=== PATIENT | female | born 1975 | race Caucasian/White ===

== ENCOUNTER 2016-07-25 19:37 | Emergency (ER) | payer OTHER ==
--- NOTE | 2016-07-25 21:08 | ED NURSING NOTES ---
Clinical Report - Nurses [facility] [place] [address] 07/25/2016 19:41 Patient: MARANDA WONG TRIAGE Triage time 19:53 Jul 25 2016. Acuity: LEVEL 4. Chief Complaint: (back pain, possible ). Alert. No acute distress. JERRY COMA SCORE: [place] Coma Scale: 15- eyes open spontaneously (4); best verbal response- oriented x 4 (5); best motor response- obeys commands (6). --20:03 Odalis Tapia R.N. 19:53 07/25/16. BP: 126/69. HR: 100. RR: 18. O2 saturation: 100%. Temp: 98.2 F. Pain level now 0/10. --20:03 Odalis Tapia R.N. Weight: 78.4 kg stated. Height/Length: 63 inches Per Patient. BMI: 30.6. --19:52 Odalis Tapia R.N. Medications Abilify Oral 2.5 mg. --20:00 Odalis Tapia R.N. Lexapro Oral 10 mg. --20:01 Odalis Tapia R.N. ClonazePAM Oral 1 mg. --20:01 Odalis Tapia R.N. Medication/allergy information source: the patient. --20:03 Odalis Tapia R.N. Allergies Haldol. ("eyes rolled back in my head") --20:01 Odalis Tapia R.N. History Arrived by private vehicle. Historian: patient. Primary physician (Grabiel MCCLURE). ( Pt states she had unprotected sex recently and concerned she may have a STD or may be . "I took a few home tests and they were positive and negative".). Onset. (3 weeks). Treatment SERVICE CONSULTANT: None. PAST MEDICAL HX: Immunizations: up-to-date and seasonal influenza. Last normal menstrual period- Jun 30. Sexual history - sexually active and history of exposure to sexually transmitted disease. No contraception. SOCIAL HX: Smoker- current status unknown. No alcohol use or drug use. No infectious disease exposure. FALL RISK ASSESSMENT: Fall risk assessment completed. No fall risk identified. NUTRITIONAL RISK ASSESSMENT: The nutritional risk assessment revealed no deficiencies. FUNCTIONAL ASSESSMENT: Functional assessment: no impairments noted. LEARNING NEEDS ASSESSMENT: The learning needs assessment revealed no barriers. SKIN INTEGRITY ASSESSMENT: Skin integrity risk assessment completed. No skin integrity risk identified. --20:03 Odalis Tapia R.N. PROBLEMS: Depression. Anxiety Reaction. Bipolar Disorder. --20:02 Odalis Tapia R.N. ADDITIONAL SURGERIES: Knee Surgery. --20:02 Odalis Tapia R.N. Cholecystectomy. --20:03 Odalis Tapia R.N. Interventions ID band on patient. To room. --20:03 Odalis Tapia R.N. PHYSICAL ASSESSMENT Ambulatory to room. GENERAL / NEURO / PSYCH: Oriented X 4. Appears in no acute distress. SKIN: Skin is warm and dry. --20:03 Odalis Tapia R.N. NURSING PROGRESS NOTES Clean catch urine collected with return of yellow-colored clear urine; sample sent to lab for urinalysis. Specimen labeled in the presence of the patient. --20: Odalis Tapia R.N. PELVIC EXAM: Pelvic exam performed by PA. Assisted by one nurse. Preparation: pelvic tray; patient placed in lithotomy position. Procedure: speculum and bimanual exam. Moderate amount of vaginal discharge noted. Specimens collected and sent to lab: GC, chlamydia and wet prep. Status post-procedure: she was stable. Total time of assist / procedure: 15 minutes. --20:21 Rona Logan 21:07 07/25/2016 Macrobid PO Capsules 100 mg given. Allergies verified and confirmed 5 rights. --21:07 Rona Logan. DISPOSITION / DISCHARGE :07/25/16. No learning barriers present. Discharge instructions provided and reviewed with the patient. Reviewed medication(s) side effects, precautions, dosing and course information. Prescription(s) given to the patient. Patient verbalized understanding. Written instructions provided in Lao. ( Follow up with PCP in 3 days. Increase fluid intake. If any tests come back abnormal we will call you.). The patient was discharged by the physician assistant bookkeeper. She was discharged home and unaccompanied at time of discharge. She left the Emergency Department ambulatory and via private vehicle. Patient driving. --21:20 Rona Logan 21:16 07/25/16. BP: deferred. HR: deferred. RR: deferred. O2 saturation: deferred. Temp: deferred. Pain level now deferred. --21:20 Rona Logan. Locked/Released at 07/26/2016 5:44 by Rona Logan,
--- NOTE | 2016-07-25 21:08 | ED NURSING NOTES ---
Clinical Report - Nurses [facility] [place] [place] [address] 07/25/2016 19:41 Patient: MARANDA WONG TRIAGE Triage time 19:53 Jul 25 2016. Acuity: LEVEL 4. Chief Complaint: (back pain, possible ). Alert. No acute distress. JERRY COMA SCORE: [place] Coma Scale: 15- eyes open spontaneously (4); best verbal response- oriented x 4 (5); best motor response- obeys commands (6). --20:03 Odalis Tapia R.N. 19:53 07/25/16. BP: 126/69. HR: 100. RR: 18. O2 saturation: 100%. Temp: 98.2 F. Pain level now 0/10. --20:03 Odalis Tapia R.N. Weight: 78.4 kg stated. Height/Length: 63 inches Per Patient. BMI: 30.6. --19:52 Odalis Tapia R.N. Medications Abilify Oral 2.5 mg. --20:00 Odalis Tapia R.N. Lexapro Oral 10 mg. --20:01 Odalis Tapia R.N. ClonazePAM Oral 1 mg. --20:01 Odalis Tapia R.N. Medication/allergy information source: the patient. --20:03 Odalis Tapia R.N. Allergies Haldol. ("eyes rolled back in my head") --20:01 Odalis Tapia R.N. History Arrived by private vehicle. Historian: patient. Primary physician (Grabiel MCCLURE). ( Pt states she had unprotected sex recently and concerned she may have a STD or may be . "I took a few home tests and they were positive and negative".). Onset. (3 weeks). Treatment SUPERVISOR WATERWORKS: None. PAST MEDICAL HX: Immunizations: up-to-date and seasonal influenza. Last normal menstrual period- Jun 30. Sexual history - sexually active and history of exposure to sexually transmitted disease. No contraception. SOCIAL HX: Smoker- current status unknown. No alcohol use or drug use. No infectious disease exposure. FALL RISK ASSESSMENT: Fall risk assessment completed. No fall risk identified. NUTRITIONAL RISK ASSESSMENT: The nutritional risk assessment revealed no deficiencies. FUNCTIONAL ASSESSMENT: Functional assessment: no impairments noted. LEARNING NEEDS ASSESSMENT: The learning needs assessment revealed no barriers. SKIN INTEGRITY ASSESSMENT: Skin integrity risk assessment completed. No skin integrity risk identified. --20:03 Odalis Tapia R.N. PROBLEMS: Depression. Anxiety Reaction. Bipolar Disorder. --20:02 Odalis Tapia R.N. ADDITIONAL SURGERIES: Knee Surgery. --20:02 Odalis Tapia R.N. Cholecystectomy. --20:03 Odalis Tapia R.N. Interventions ID band on patient. To room. --20:03 Odalis Tapia R.N. PHYSICAL ASSESSMENT Ambulatory to room. GENERAL / NEURO / PSYCH: Oriented X 4. Appears in no acute distress. SKIN: Skin is warm and dry. --20:03 Odalis Tapia R.N. NURSING PROGRESS NOTES Clean catch urine collected with return of yellow-colored clear urine; sample sent to lab for urinalysis. Specimen labeled in the presence of the patient. --20: Odalis Tapia R.N. PELVIC EXAM: Pelvic exam performed by PA. Assisted by one nurse. Preparation: pelvic tray; patient placed in lithotomy position. Procedure: speculum and bimanual exam. Moderate amount of vaginal discharge noted. Specimens collected and sent to lab: GC, chlamydia and wet prep. Status post-procedure: she was stable. Total time of assist / procedure: 15 minutes. --20:21 Rona Logan 21:07 07/25/2016 Macrobid PO Capsules 100 mg given. Allergies verified and confirmed 5 rights. --21:07 Rona Logan. DISPOSITION / DISCHARGE :07/25/16. No learning barriers present. Discharge instructions provided and reviewed with the patient. Reviewed medication(s) side effects, precautions, dosing and course information. Prescription(s) given to the patient. Patient verbalized understanding. Written instructions provided in [place]. ( Follow up with PCP in 3 days. Increase fluid intake. If any tests come back abnormal we will call you.). The patient was discharged by the physician physician office assistant. She was discharged home and unaccompanied at time of discharge. She left the Emergency Department ambulatory and via private vehicle. Patient driving. --21:20 Rona Logan 21:16 07/25/16. BP: deferred. HR: deferred. RR: deferred. O2 saturation: deferred. Temp: deferred. Pain level now deferred. --21:20 Rona Logan. Locked/Released at 07/26/2016 5:44 by Rona Logan,
--- NOTE | 2016-07-25 21:08 | ED CLINICAL REPORT ---
Clinical Report - Physicians/Mid Levels [facility] [address] [place] [address] 07/25/2016 19:41 Patient: MARANDA WONG Time Seen: 20:00 Jul 25 2016. Arrived- By private vehicle. Historian- patient. HISTORY OF PRESENT ILLNESS Chief Complaint: PELVIC PAIN and DYSURIA. 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 The patient has had pelvic pain. No vaginal pain or low back pain. Last normal menstrual period- jun 30. Sexually active- unprotected sex and heterosexual. (Patient reports unprotected intercourse 3 weeks previously, concern for STD, has had cramping, arthralgias, myalgias, no fevers. Occasional back pain, and addition has had frequency. Pertinent denied of any symptoms. Patient has taken at home tests, which were negative and positive. Patient reports seeing her primary care provider today for other issues however did not mention any of this to her.). REVIEW OF SYSTEMS No vomiting, diarrhea, headache or fever. All systems otherwise negative, except as recorded above. SOCIAL HISTORY No alcohol use or drug use. ADDITIONAL NOTES The nursing notes have been reviewed. PHYSICAL EXAM Vital Signs: 07/25/2016 19:53 BP: 126/69. HR: 100. RR: 18. O2 saturation: 100%. Temp: 98.2 F. Appearance: Alert. HEENT: Normal external inspection. ENT: Pharynx normal. CVS: Heart sounds normal. Respiratory: No respiratory distress. Breath sounds normal. Abdomen: Soft and nontender. Bowel sounds normal. No mass. The bowel sounds are not abnormal. No mass present. Back: Normal external inspection. No CVA tenderness. : Speculum and bimanual exam performed. External inspection normal. A moderate amount of thick and malodorous vaginal discharge present. No cervical dilation. Bimanual exam normal. No tenderness present on bimanual exam. Uterus not enlarged. No tenderness with movement of the cervix. No adnexal tenderness. No adnexal mass/fullness. (pelvic exam, chaperoned with Rona (RN)). Skin: Skin warm. Normal skin color. Neuro: Oriented X 3. LABS, X-RAYS, AND EKG Laboratory Tests: UA-Culture if indicated: (FAVIAN: 07/25/2016 20:05) ( [facility] [place] 07/25/2016 20:42) Final results Test Result Flag Units (Reference) URINE COLOR YELLOW URINE APPEARANCE CLEAR URINE GLUCOSE NEGATIVE (NEGATIVE) URINE BILIRUBIN NEGATIVE (NEGATIVE) URINE KETONE NEGATIVE (NEGATIVE) URINE SPECIFIC GRAVITY 1.025 (1.010-1.030) URINE PH 6.0 (5.0-8.0) URINE PROTEIN NEGATIVE (NEGATIVE) URINE UROBILINOGEN 0.2 EU/dL (0.2-1.0) URINE NITRITE NEGATIVE (NEGATIVE) URINE BLOOD 1+ (NEGATIVE) URINE LEUK ESTERASE NEGATIVE (NEGATIVE) URINE RBC 5-10 rbc/hpf (0-1) URINE WBC 1-3 wbc/hpf (0-1) URINE EPITHELIAL CELLS 3-5 EPI/hpf (0-5) URINE BACTERIA FEW (1+) (NONE SEEN) URINE COMMENT CULT NOT INDICATED URINE CULTURES ARE SET-UP BASED ON THE FOLLOWING CRITERIA:POSITIVE NITRITEPOSITIVE LEUKOCYTE ESTERASEGREATER THAN 10 WHITE BLOOD CELLSMODERATE (2+) OR GREATER BACTERIA Urine: (FAVIAN: 07/25/2016 20:05) ( [facility] [place] 20:34[place] Final results Test Result Flag Units (Reference) URINE NEGATIVE Wet Prep: (FAVIAN: 07/25/2016 20:15) ( [facility] [place] 20:40) Final results SPECIMEN DESCRIPTION: C Test Result Flag Units (Reference) WET MOUNT CLUE CELLS:: NONE EPITHELIAL CELLS: MANY -- SOURCE?: CERVIX WHITE BLOOD CELLS: FEW TRICHOMONAS:: NONE -- YEAST:: NONE . PROGRESS AND PROCEDURES Course of Care: atient here in the ER, operative treatment for suspected possible sexually transmitted disease exposure, the Center clinic, will await for cultures. Patient will be treated for cystitis, although I suspect this may be due to STD, which we will await for results. Patient understands plan, and she will receive a phone call if her STD screen is positive. No signs of . Patient is afebrile and normal cardiac. Non tender exam, no cmt. no mass. 07/25/2016 19:53 BP: 126/69. HR: 100. RR: 18. O2 saturation: 100%. Temp: 98.2 F. Patient is stable. Physical exam findings are improved. The patient's symptoms are unchanged. Patient/family counseled. Differential Diagnosis: I considered intraabdominal abscess, ascites, urinary tract infection, cystitis, prostatitis, ureterolithiasis, urinary obstruction, ovarian cyst, ovarian torsion, , ectopic , pelvic inflammatory disease, pelvic abscess and Mittelschmerz syndrome as a possible cause of abdominal pain in this patient. Disposition: Discharged. CLINICAL IMPRESSION Acute cystitis. INSTRUCTIONS (we will call you if any of the STD testing comes back positive, please take probiotic with your antibiotic for your bladder infection). Warnings: Further evaluation is necessary. Prescription Medications: Pyridium 200 mg: take 1 orally every 8 hours as needed for urinary problems. Dispense six (6). No refills. Substitution is permissible. Macrobid 100 mg: Take 1 capsule orally every 12 hours for 7 days. No refills. Substitution is permissible. OTC Medications: Take OTC medications according to label instructions. Available over the counter. Motrin (available over the counter): take according to label instructions. Follow-up: Follow up with your doctor in three days. (Electronically signed by Marleni Scruggs P.A.-C 07/25/2016 21:19)
--- NOTE | 2016-07-25 21:08 | ED ORDER SUMMARY ---
..... Patient: MARANDA WONG OrderSheet [facility] VisitID: [id number] [address] [place] [address] 41y, F Registration Date/Time: 07/25/2016 ORDER SHEET Weight: 78.4 kg (stated) Allergies: Haldol GENERAL ORDERS: GC/Chlamydia (Cervix) (c) Urgent (20:04 07/25/2016 EKoroleva P.A.-C) (Ack 20:10 LMuller) (21:06 HSoule) Wet Prep (Cervix) (c) Urgent (20:04 07/25/2016 EKoroleva P.A.-C) (Ack 20:10 LMuller) (21:06 HSoule) UA-Culture if indicated Urgent (20:04 07/25/2016 EKoroleva P.A.-C) (Ack 20:10 LMuller) (21:06 HSoule) Urine Urgent (20:04 07/25/2016 EKoroleva P.A.-C) (Ack 20:10 LMuller) (21:06 HSoule) Pelvic Exam Setup (20:04 07/25/2016 EKoroleva P.A.-C) (Ack 20:10 LMuller) (20:10 LMuller) MEDICATION ORDERS: Macrobid PO 100 mg (NOW) (20:48 07/25/2016 EKoroleva P.A.-C) (Ack 21:01 HSoule) (21:07 HSoule) IV FLUIDS: ORDER SHEET NOTES: [Electronically signed by Marleni Scruggs P.A.-C (21:19 07/25/2016)] [Electronically signed by Rona Logan (05:44 07/26/2016)] [Electronically locked/signed by Rona Logan (05:44 07/26/2016)]
--- NOTE | 2016-07-25 21:08 | ED ORDER SUMMARY ---
..... Patient: MARANDA WONG OrderSheet [facility] VisitID: [id number] [address] [place] [address] 41y, F Registration Date/Time: 07/25/2016 ORDER SHEET Weight: 78.4 kg (stated) Allergies: Haldol GENERAL ORDERS: GC/Chlamydia (Cervix) (c) Urgent (20:04 07/25/2016 EKoroleva P.A.-C) (Ack 20:10 LMuller) (21:06 HSoule) Wet Prep (Cervix) (c) Urgent (20:04 07/25/2016 EKoroleva P.A.-C) (Ack 20:10 LMuller) (21:06 HSoule) UA-Culture if indicated Urgent (20:04 07/25/2016 EKoroleva P.A.-C) (Ack 20:10 LMuller) (21:06 HSoule) Urine Urgent (20:04 07/25/2016 EKoroleva P.A.-C) (Ack 20:10 LMuller) (21:06 HSoule) Pelvic Exam Setup (20:04 07/25/2016 EKoroleva P.A.-C) (Ack 20:10 LMuller) (20:10 LMuller) MEDICATION ORDERS: Macrobid PO 100 mg (NOW) (20:48 07/25/2016 EKoroleva P.A.-C) (Ack 21:01 HSoule) (21:07 HSoule) IV FLUIDS: ORDER SHEET NOTES: [Electronically signed by Marleni Scruggs P.A.-C (21:19 07/25/2016)] [Electronically signed by Rona Logan (05:44 07/26/2016)] [Electronically locked/signed by Rona Logan (05:44 07/26/2016)]
--- NOTE | 2016-07-25 21:08 | ED CLINICAL REPORT ---
Clinical Report - Physicians/Mid Levels [facility] [address] [place] [address] 07/25/2016 19:41 Patient: MARANDA WONG Time Seen: 20:00 Jul 25 2016. Arrived- By private vehicle. Historian- patient. HISTORY OF PRESENT ILLNESS Chief Complaint: PELVIC PAIN and DYSURIA. 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 The patient has had pelvic pain. No vaginal pain or low back pain. Last normal menstrual period- jun 30. Sexually active- unprotected sex and heterosexual. (Patient reports unprotected intercourse 3 weeks previously, concern for STD, has had cramping, arthralgias, myalgias, no fevers. Occasional back pain, and addition has had frequency. Pertinent denied of any symptoms. Patient has taken at home tests, which were negative and positive. Patient reports seeing her primary care provider today for other issues however did not mention any of this to her.). REVIEW OF SYSTEMS No vomiting, diarrhea, headache or fever. All systems otherwise negative, except as recorded above. SOCIAL HISTORY No alcohol use or drug use. ADDITIONAL NOTES The nursing notes have been reviewed. PHYSICAL EXAM Vital Signs: 07/25/2016 19:53 BP: 126/69. HR: 100. RR: 18. O2 saturation: 100%. Temp: 98.2 F. Appearance: Alert. HEENT: Normal external inspection. ENT: Pharynx normal. CVS: Heart sounds normal. Respiratory: No respiratory distress. Breath sounds normal. Abdomen: Soft and nontender. Bowel sounds normal. No mass. The bowel sounds are not abnormal. No mass present. Back: Normal external inspection. No CVA tenderness. : Speculum and bimanual exam performed. External inspection normal. A moderate amount of thick and malodorous vaginal discharge present. No cervical dilation. Bimanual exam normal. No tenderness present on bimanual exam. Uterus not enlarged. No tenderness with movement of the cervix. No adnexal tenderness. No adnexal mass/fullness. (pelvic exam, chaperoned with Rona (RN)). Skin: Skin warm. Normal skin color. Neuro: Oriented X 3. LABS, X-RAYS, AND EKG Laboratory Tests: UA-Culture if indicated: (FAVIAN: 07/25/2016 20:05) ( [facility] [place] 20:42) Final results Test Result Flag Units (Reference) URINE COLOR YELLOW URINE APPEARANCE CLEAR URINE GLUCOSE NEGATIVE (NEGATIVE) URINE BILIRUBIN NEGATIVE (NEGATIVE) URINE KETONE NEGATIVE (NEGATIVE) URINE SPECIFIC GRAVITY 1.025 (1.010-1.030) URINE PH 6.0 (5.0-8.0) URINE PROTEIN NEGATIVE (NEGATIVE) URINE UROBILINOGEN 0.2 EU/dL (0.2-1.0) URINE NITRITE NEGATIVE (NEGATIVE) URINE BLOOD 1+ (NEGATIVE) URINE LEUK ESTERASE NEGATIVE (NEGATIVE) URINE RBC 5-10 rbc/hpf (0-1) URINE WBC 1-3 wbc/hpf (0-1) URINE EPITHELIAL CELLS 3-5 EPI/hpf (0-5) URINE BACTERIA FEW (1+) (NONE SEEN) URINE COMMENT CULT NOT INDICATED URINE CULTURES ARE SET-UP BASED ON THE FOLLOWING CRITERIA:POSITIVE NITRITEPOSITIVE LEUKOCYTE ESTERASEGREATER THAN 10 WHITE BLOOD CELLSMODERATE (2+) OR GREATER BACTERIA Urine: (FAVIAN: 07/25/2016 20:05) ( [facility] [place] Final results Test Result Flag Units (Reference) URINE NEGATIVE Wet Prep: (FAVIAN: 07/25/2016 20:15) ( [facility] [place] 20:40) Final results SPECIMEN DESCRIPTION: C Test Result Flag Units (Reference) WET MOUNT CLUE CELLS:: NONE EPITHELIAL CELLS: MANY -- SOURCE?: CERVIX WHITE BLOOD CELLS: FEW TRICHOMONAS:: NONE -- YEAST:: NONE . PROGRESS AND PROCEDURES Course of Care: atient here in the ER, operative treatment for suspected possible sexually transmitted disease exposure, the [facility] clinic, will await for cultures. Patient will be treated for cystitis, although I suspect this may be due to STD, which we will await for results. Patient understands plan, and she will receive a phone call if her STD screen is positive. No signs of . Patient is afebrile and normal cardiac. Non tender exam, no cmt. no mass. 07/25/2016 19:53 BP: 126/69. HR: 100. RR: 18. O2 saturation: 100%. Temp: 98.2 F. Patient is stable. Physical exam findings are improved. The patient's symptoms are unchanged. Patient/family counseled. Differential Diagnosis: I considered intraabdominal abscess, ascites, urinary tract infection, cystitis, prostatitis, ureterolithiasis, urinary obstruction, ovarian cyst, ovarian torsion, , ectopic , pelvic inflammatory disease, pelvic abscess and Mittelschmerz syndrome as a possible cause of abdominal pain in this patient. Disposition: Discharged. CLINICAL IMPRESSION Acute cystitis. INSTRUCTIONS (we will call you if any of the STD testing comes back positive, please take probiotic with your antibiotic for your bladder infection). Warnings: Further evaluation is necessary. Prescription Medications: Pyridium 200 mg: take 1 orally every 8 hours as needed for urinary problems. Dispense six (6). No refills. Substitution is permissible. Macrobid 100 mg: Take 1 capsule orally every 12 hours for 7 days. No refills. Substitution is permissible. OTC Medications: Take OTC medications according to label instructions. Available over the counter. Motrin (available over the counter): take according to label instructions. Follow-up: Follow up with your doctor in three days. (Electronically signed by Marleni Scruggs P.A.-C 07/25/2016 21:19)
--- NOTE | 2016-07-26 05:44 | ED MED RECONCILIATION SUMMARY ---
Patient: MARANDA WONG Medication Reconciliation Report [facility] VisitID: [id number] [address] [place] [address] 41y, F Registration Date/Time: 07/25/2016 Weight: 78.4 kg Height/Length: 63 in. BMI: 30.6 ALLERGIES: Haldol The patient's Home Medications are listed below: THE FOLLOWING MEDICATIONS NEED TO BE RECONCILED: Abilify Oral 2.5 mg ClonazePAM Oral 1 mg Lexapro Oral 10 mg The source(s) of the original Home Medication information: patient The following Medications were given to the patient in the Emergency Department: Macrobid [PO] PO 100 mg, administered: 07/25/2016 9:07:00 PM The following Medications were prescribed to the patient: Take OTC medications according to label instructions. Available over the counter. -- Marleni Scruggs, P.A.-C Motrin (available over the counter): take according to label instructions. -- Marleni Scruggs, P.A.-C Pyridium 200 mg: take 1 orally every 8 hours as needed for urinary problems. Dispense six (6). No refills. Substitution is permissible. -- Marleni Scruggs, P.A.-C Macrobid 100 mg: Take 1 capsule orally every 12 hours for 7 days. No refills. Substitution is permissible. -- Marleni Scruggs, P.A.-C
--- NOTE | 2016-07-26 05:44 | ED MED RECONCILIATION SUMMARY ---
Patient: MARANDA WONG Medication Reconciliation Report [facility] VisitID: [id number] [address] [place] [address] 41y, F Registration Date/Time: 07/25/2016 Weight: 78.4 kg Height/Length: 63 in. BMI: 30.6 ALLERGIES: Haldol The patient's Home Medications are listed below: THE FOLLOWING MEDICATIONS NEED TO BE RECONCILED: Abilify Oral 2.5 mg ClonazePAM Oral 1 mg Lexapro Oral 10 mg The source(s) of the original Home Medication information: patient The following Medications were given to the patient in the Emergency Department: Macrobid [PO] PO 100 mg, administered: 07/25/2016 9:07:00 PM The following Medications were prescribed to the patient: Take OTC medications according to label instructions. Available over the counter. -- Marleni Scruggs, P.A.-C Motrin (available over the counter): take according to label instructions. -- Marleni Scruggs, P.A.-C Pyridium 200 mg: take 1 orally every 8 hours as needed for urinary problems. Dispense six (6). No refills. Substitution is permissible. -- Marleni Scruggs, P.A.-C Macrobid 100 mg: Take 1 capsule orally every 12 hours for 7 days. No refills. Substitution is permissible. -- Marleni Scruggs, P.A.-C
--- NOTE | 2016-07-26 05:44 | ED DISCHARGE INSTRUCTIONS ---
Patient: MARANDA WONG General Instructions [facility] VisitID: [id number] [place] [address] 41y, F Registration Date/Time: 07/25/2016 Acute cystitis. INSTRUCTIONS (we will call you if any of the STD testing comes back positive, please take probiotic with your antibiotic for your bladder infection). Warnings: Further evaluation is necessary. Prescription Medications: Pyridium 200 mg: take 1 orally every 8 hours as needed for urinary problems. Dispense six (6). No refills. Substitution is permissible. Macrobid 100 mg: Take 1 capsule orally every 12 hours for 7 days. No refills. Substitution is permissible. OTC Medications: Take OTC medications according to label instructions. Available over the counter. Motrin (available over the counter): take according to label instructions. Follow-up: Follow up with your doctor in three days. ADDITIONAL INFORMATION Bladder Infection,Female (Adult) A bladder infection ("cystitis" or "UTI") usually causes a constant urge to urinate and a burning when passing urine. Urine may be cloudy, smelly or dark. There may be pain in the lower abdomen. A bladder infection occurs when bacteria from the vaginal area enter the bladder opening (urethra). This can occur from sexual intercourse, wearing tight clothing, dehydration and other factors. Home Care: Drink lots of fluids (at least 6-8 glasses a day, unless you must restrict fluids for other medical reasons). This will force the medicine into your urinary system and flush the bacteria out of your body. Avoid sexual intercourse until your symptoms are gone. Avoid caffeine, alcohol and spicy foods. These can irritate the bladder. A bladder infection is treated with antibiotics. You may also be given Pyridium (generic = phenazopyridine) to reduce the burning sensation. This medicine will cause your urine to become a bright orange color. The orange urine may stain clothing. You may wear a pad or panty-liner to protect clothing. Preventing Future Infections: Always wipe from front to back after a bowel movement. Keep the genital area clean and dry. Drink plenty of fluids each day to avoid dehydration. Both sexual partners should wash before intercourse. Urinate right after intercourse to flush out the bladder. Wear cotton underwear and cotton-lined panty hose; avoid tight-fitting pants. If you are on control pills and are having frequent bladder infections, discuss with your doctor. Follow Up: Return to this facility or see your doctor if ALL symptoms are not gone after three days of treatment. Get Prompt Medical Attention if any of the following occur: Fever of 100.4F (38C) or higher, or as directed by your healthcare provider No improvement by the third day of treatment Increasing back or abdominal pain Repeated vomiting; unable to keep medicine down Weakness, dizziness or fainting Vaginal discharge Pain, redness or swelling in the labia (outer vaginal area) You have been given the following additional information: Bladder Infection, Female (Adult) (Electronically signed by Marleni Scruggs P.A.-C 07/25/2016 21:19)
--- NOTE | 2016-07-26 05:44 | ED MAR SUMMARY ---
..... Medication Administration Record [facility] [address] [place] [address] Patient: MARANDA WONG Visit ID: [id number] 41y, F Weight: 78.4 kg Height/Length: 63 in BMI: 30.6 ALLERGIES: Haldol Given 21:07 07/25/2016 Rona Logan, Medication Administered: MACROBID [PO], Dose: 100 mg Capsules PO. Medication Ordered: Macrobid PO 100 mg (NOW).
--- NOTE | 2016-07-26 05:44 | ED MAR SUMMARY ---
..... Medication Administration Record [facility] [address] [place] [address] Patient: MARANDA WONG Visit ID: [id number] 41y, F Weight: 78.4 kg Height/Length: 63 in BMI: 30.6 ALLERGIES: Haldol Given 21:07 07/25/2016 Rona Logan, Medication Administered: MACROBID [PO], Dose: 100 mg Capsules PO. Medication Ordered: Macrobid PO 100 mg (NOW).
== END 2016-07-25 21:16 | disposition home or self-care (01) ==
LOC: ED SRH 19:37
DX: N30.90 Cystitis, unspecified without hematuria (principal); Z88.5 Allergy status to narcotic agent
CPT/HCPCS: 90004; 90195; 91227; 91228; 93070